=== PATIENT | female | born 1975 | race Two or more races ===

== ENCOUNTER 2022-04-20 18:02 | Emergency (ER) | payer OTHER ==
[~2022-04-20] VITALS: Ht 175.3 cm; Wt 97.5 kg
[2022-04-20 18:28] VITALS: BP 126/88
--- NOTE | 2022-04-20 19:22 | NUR ---
Patient discharged to home in stable condition. Written and verbal after care instructions given. Patient verbalizes understanding of instruction.
== END 2022-04-20 19:23 | disposition home or self-care (01) ==
LOC: ER 18:13
DX: S90.32XA Contusion of left foot, initial encounter (principal); F41.9 Anxiety disorder, unspecified; F32.A Depression, unspecified; Z60.2 Problems related to living alone; X50.1XXA Overexertion from prolonged static or awkward postures, initial encounter; Y93.89 Activity, other specified; Y92.89 Other specified places as the place of occurrence of the external cause; Y99.8 Other external cause status

== ENCOUNTER 2022-05-08 16:52 | Emergency (ER) | payer OTHER ==
[~2022-05-08] VITALS: Ht 175.3 cm; Wt 55.3 kg
--- NOTE | 2022-05-08 17:07 | NUR ---
RIGHT THUMB PAIN/SWELLING X 4 DAYS
[2022-05-08] MEDS ORDERED: SULF1TAB48 PO (18:54)
[2022-05-08] MEDS ORDERED: CEPH500C2 PO (18:54)
[2022-05-08] MEDS ORDERED: CEPHALEXIN MONOHYDRATE 500 MG CAPSULE PO ONE ×2 (19:50→20:00)
[2022-05-08] MEDS ORDERED: SULFAMETH/TRIMETH 800/160 MG 1 UDTAB TABLET ONE (19:50)
--- NOTE | 2022-05-08 19:55 | NUR ---
Patient discharged to home in stable condition. RX Written and verbal after care instructions given. Patient verbalizes understanding of instruction.
[2022-05-08] MEDS ORDERED: SULFAMETH/TRIMETH 800/160 MG 1 UDTAB TABLET PO ONE (20:00)
[2022-05-08 20:30] VITALS: BP 130/88
== END 2022-05-08 20:30 | disposition home or self-care (01) ==
LOC: ER 16:57
DX: L03.011 Cellulitis of right finger (principal); F41.9 Anxiety disorder, unspecified; Z60.2 Problems related to living alone; Z79.899 Other long term (current) drug therapy
CPT/HCPCS: 73140-TC

== ENCOUNTER 2022-05-09 08:08 | Emergency (ER) | payer OTHER ==
[~2022-05-09] VITALS: Ht 175.3 cm; Wt 55.3 kg
[~2022-05-09 08:08] MED LIST: CEPH500C2 PO; SULF1TAB48 PO
[2022-05-09 08:17] VITALS: BP 135/85
--- NOTE | 2022-05-09 08:21 | NUR ---
/PA AT BEDSIDE FOR EVAL
[2022-05-09] MEDS ORDERED: LET SOLN TOPICAL 8 ML UDC TP ONE (08:33)
[2022-05-09] MEDS: LET SOLN TOPICAL 8 ML UDC TP ONE (08:40)
--- NOTE | 2022-05-09 08:40 | NUR ---
LET SOLUTION APPLIED TOPICALLY ON RIGHT THUMB INDICATED.
--- NOTE | 2022-05-09 09:25 | NUR ---
W/ PT AT BEDSIDE
--- NOTE | 2022-05-09 09:37 | NUR ---
Patient discharged to home in stable condition. Written and verbal after care instructions given. Patient verbalizes understanding of instruction.
== END 2022-05-09 09:39 | disposition home or self-care (01) ==
LOC: ER 08:09
DX: L03.011 Cellulitis of right finger (principal); F41.9 Anxiety disorder, unspecified; Z60.2 Problems related to living alone; Z79.899 Other long term (current) drug therapy